=== PATIENT | female | born 1985 | race American Indian/Alaskan Native ===

== ENCOUNTER 2018-12-13 08:07 | Emergency (ER) | payer BC, OTHER ==
[2018-12-13 08:19] VITALS: BMI 31.2
[2018-12-13 08:38] LABS: PH,URINE 5.5 (5.0-8.0); URINE APPEARANCE CLEAR; URINE BILIRUBIN NEGATIVE (NEGATIVE); URINE COLOR YELLOW; URINE GLUCOSE (UA) NEGATIVE (NEGATIVE); URINE KETONE NEGATIVE (NEGATIVE); URINE LEUK ESTERASE NEGATIVE (NEGATIVE); URINE NITRITE NEGATIVE (NEGATIVE); URINE PROTEIN NEGATIVE (NEGATIVE); URINE UROBILINOGEN 0.2 mg/dL (0.2-1.0)
[2018-12-13 08:40] LABS: HCG,QUALITATIVE URINE Negative
--- NOTE | 2018-12-13 10:04 | PDOC ---
Attending Attestation - Resident Resident Name: Marty Ma - ED Attending Attestation I have performed the following: I have examined & evaluated the patient, The case was reviewed & discussed with the resident, I agree w/resident's findings & plan, Exceptions are as noted - HPI HPI: 33 yo F history PCOS presents with episode of RLQ pain this morning. Pain resolved upon arrival in ED. Pain was sharp, severe, nonradiating. No associated N/V/D, f/c, dysuria, flank pain. She follows with her senior mechanical project engineer for the PCOS, was told she previously had a 5 cm cyst which had resolved a few months ago. Currently denies any pain. - Physicial Exam PE: GENERAL: Awake, alert, and fully oriented, in no acute distress HEAD: No signs of trauma EYES: PERRLA, EOMI, sclera anicteric, conjunctiva clear ENT: Auricles normal inspection, hearing grossly normal, nares patent, oropharynx clear without exudates. Moist mucosa NECK: Normal ROM, supple, no lymphadenopathy, JVD, or masses LUNGS: Breath sounds equal, clear to auscultation bilaterally. No wheezes, and no crackles HEART: Regular rate and rhythm, normal S1 and S2, no murmurs, rubs or gallops ABDOMEN: Soft, +mild RLQ tenderness, normoactive bowel sounds. No guarding, no rebound. No masses EXTREMITIES: Normal range of motion, no edema. No clubbing or cyanosis. No cords, erythema, or tenderness NEUROLOGICAL: Cranial nerves II through XII grossly intact. Normal speech, normal gait. Motor and sensation intact SKIN: Warm, dry, normal turgor, no rashes or lesions noted. - Medical Decision Making Pt initially pain free on first eval, but noted to have tenderness. Sono was ordered to r/o cyst vs torsion. However, she developed another episode of pain in the ED, and ultrasound was expedited. Found to have 5cm cyst, will d/w her senior mechanical project engineer in light of the intermittent symptoms, as they are concerning for torsion. Kidney stone less likely in the absence of flank pain and urinary symptoms. No signs of UTI. Appy also unlikely, as the description of her symptoms is very atypical fro this.
[2018-12-13] MEDS ORDERED: ACETAMINOPHEN 500 MG TABLET (FP) PO ONE (10:22)
[2018-12-13] MEDS ORDERED: ACETAMINOPHEN INJECTION 100 ML IVPB ONE (10:23)
[2018-12-13] MEDS ORDERED: ACETAMINOPHEN 1000 MG/100 ML VIAL (NON FORMULARY) IVPB ONE (10:23)
[2018-12-13 10:28] LABS: HEMATOCRIT 39.4 % (32.4-45.2); HEMOGLOBIN 12.9 GM/dL (10.7-15.3); MCH 28.3 pg (25.7-33.7); MCHC 32.8 g/dl (32.0-36.0); MEAN CELL VOLUME 86.4 fl (80-96); RBC 4.56 M/mm3 (3.60-5.2)
[2018-12-13 10:46] LABS: BASO % 0.5 % (0-2.0); EOS % 2.5 % (0-4.5); LYMPH % 40.5 % (8-40); MEAN PLT VOLUME 9.9 fl (7.5-11.1); MONO % 7.1 % (3.8-10.2); NEUT % 49.4 % (42.8-82.8); RDW 14.3 % (11.6-15.6); WHITE BLOOD COUNT 12.7 K/mm3 (4.0-10.0)
[2018-12-13 10:51] LABS: PLATELET COUNT 271 K/MM3 (134-434)
--- NOTE | 2018-12-13 11:04 | PDOC ---
History of Present Illness - General Chief Complaint: Pain, Acute Stated Complaint: RT LWR ABD PAIN Time Seen by Provider: 12/13/18 09:22 History Source: Patient, Spouse ( present at bedside.) Exam Limitations: No Limitations - History of Present Illness Initial Comments: HPI: 33 y/o female presenting to [facility] ER complaining of sudden onset of worsening RLQ pain at approx. 07:45 this morning. Pain became more intense before suddenly improving significantly approx. 10 min prior to interview. States it was nonmigratory with possible radiation to groin. Now area feels dull/achy. Endorses history of R lower back pain, which is unchanged. Denies urinary symptoms or vaginal discharge. Reports negative home test two days ago. Denies h/o of similar pain. OBGYN: Dr. Jackson Israel at [facility] Hx: - Occupation Registered Nurse Medical Hx: - PCOS managed with Metformin and Spironolactone - Mirena IUD in place Surgical Hx: - x2 (last 2011) Review of Systems: In addition to that documented in the HPI above, the additional ROS was obtained : Constitutional: Denies fevers or chills Head: Denies vision changes ENMT: Denies sore throat CV: Denies chest pain Resp: Denies SOB GI: Denies vomiting or diarrhea : Denies painful urination, hematuria, or vaginal discharge MSK: Denies recent trauma Skin: Denies new rashes Neuro: Denies new numbness or tingling or weakness Endocrine: Denies polyuria Heme: Denies bleeding or bruising Physical Examination: Constitutional: Well-developed, well-nourished adult female in no acute distress or obvious discomfort. Found semi-fowlers on hospital bed. Alert and oriented x4. Answered all questions appropriately and completely. Speech was non -labored, non-pressured. Head: Normocephalic. No obvious external signs of trauma. Cardiovascular / Chest: Regular rate and regular rhythm. No murmur, rubs, clicks , or gallops. Peripheral pulses: radial pulses full. Respiratory: Breathing unlabored. Equal chest rise and fall. Clear to auscultation bilaterally. No stridor, no wheezing, no rhonchi. Gastrointestinal: abdomen is tender in RLQ without rebound, guarding, or grimace. Pt able to bend at the waist and transition from laying to seated position without obvious discomfort. Globally, abdomen is soft and nondistended. No hepatosplenemegaly. No pulsatile masses. No overlying skin lesions or obvious signs of trauma. Neuro: Alert and oriented. Moving all four extremities spontaneously. Skin: Warm, dry, and intact. : No R or L CVA tenderness. Psych: Affect: appropriate. Mood: normal. Past History - Past Medical History Allergies/Adverse Reactions: Allergies Allergy/AdvReac Type Severity Reaction Status Date / Time No Known Allergies Allergy Verified 12/13/18 08:16 Home Medications: Ambulatory Orders Levonorgestrel [Mirena] 1 each IY ASDIR 12/13/18 Spironolactone [Aldactone] 50 mg PO BID 12/13/18 metFORMIN HCL [Metformin HCl] 1,000 mg PO BID 12/13/18 COPD: No Other medical history: PCOS - Reproductive History Polycystic Ovaries: Yes - Suicide/Smoking/Psychosocial Hx Smoking History: Never smoked *Physical Exam - Vital Signs Last Vital Signs Temp Pulse Resp BP Pulse Ox 98.4 F 75 18 129/74 97 12/13/18 08:13 12/13/18 08:13 12/13/18 08:13 12/13/18 08:13 12/13/18 08:13 ED Treatment Course - LABORATORY CBC & Chemistry Diagram: 12/13/18 10:00 12/13/18 10:00 - ADDITIONAL ORDERS Additional order review: Laboratory Results 12/13/18 08:15 Urine Color Yellow Urine Appearance Clear Urine pH 5.5 Ur Specific Bath 1.021 Urine Protein Negative Urine Glucose (UA) Negative Urine Ketones Negative Urine Blood Negative Urine Nitrite Negative Urine Bilirubin Negative Urine Urobilinogen 0.2 Ur Leukocyte Esterase Negative Urine HCG, Qual Negative 12/13/18 10:00 RBC 4.56 MCV 86.4 MCHC 32.8 RDW 14.3 MPV 9.9 Neutrophils % 49.4 Lymphocytes % 40.5 H Monocytes % 7.1 Eosinophils % 2.5 Basophils % 0.5 - RADIOLOGY Radiology Studies Ordered: Category Date Time Status TRANSVAGINAL ULTRASOUND US [US] Stat Ultrasound 12/13/18 09:56 Ordered - Medications Given in the ED: ED Medications Discontinued Medications Generic Name Dose Route Start Last Admin Trade Name Freq PRN Reason Stop Dose Admin Acetaminophen 975 mg 12/13/18 10:22 12/13/18 10:37 Tylenol - PO 12/13/18 10:23 Not Given ONCE ONE Acetaminophen 1,000 mg 12/13/18 10:23 12/13/18 10:36 Ofirmev Injection - IVPB 12/13/18 10:24 1,000 mg ONCE ONE Administration *DC/Admit/Observation/Transfer Diagnosis at time of Disposition: Right lower quadrant pain - Discharge Dispostion Disposition: HOME Condition at time of disposition: Improved Decision to Admit order: No - Referrals - Patient Instructions Printed Discharge Instructions: DI for Abdominal Pain-Adult, DI for Ovarian Cyst Additional Instructions: You were seen today for right lower quadrant abdominal pain. Your ultrasound revealed a cyst on your right ovary. This cyst may possibly be causing your ovary to intermittently twist on itself. It does not appear to require surgery at this time. However should the pain return and become constant, please return to the emergency department for further evaluation. Over the next few days, you should rest and refrain from intercourse. You can take over the counter Tylenol or Advil as needed for pain. Take as directed on the package insert. Do not exceed the recommended dosage. Follow up with your OBGYN, Dr. Cordova in the next two to three days. You will need to call to make an appointment. The number is included in this packet. A copy of todays results are attached to this packet. Take it to the appointment so your doctor can review them. Go to the nearest emergency department if your condition worsens or you feel like you need additional emergency evaluation. Print Language: CAMBODIAN - Post Discharge Activity Forms/Work/School Notes: Back to Work
[2018-12-13 11:26] LABS: ALBUMIN 3.6 g/dl (3.4-5.0); BILIRUBIN,TOTAL 0.4 mg/dL (0.2-1); BLOOD UREA NITROGEN 18.5 mg/dL (7-18); CALCIUM 9.3 mg/dL (8.5-10.1); CREATININE 0.9 mg/dL (0.55-1.3); POTASSIUM 3.7 mmol/L (3.5-5.1); TOT PROT 7.1 g/dl (6.4-8.2)
[2018-12-13] MEDS ORDERED: LACTATED RINGERS SOLUTION 1,000 ML/1,000 ML INFUS.BAG IV SCH (13:30)
[2018-12-13 16:51] VITALS: BP 99/85; PULSE 74; TEMP 98.1
== END 2018-12-13 17:06 | disposition home or self-care (01) ==
LOC: JER 08:07
PROC: 3E0337Z Introduction of Electrolytic and Water Balance Substance into Peripheral Vein, Percutaneous Approach (ICD-10-PCS; principal; 2018-12-13)
PROC: 3E033NZ Introduction of Analgesics, Hypnotics, Sedatives into Peripheral Vein, Percutaneous Approach (ICD-10-PCS; 2018-12-13)
DX: N83.201 Unspecified ovarian cyst, right side (principal); E28.2 Polycystic ovarian syndrome
CPT/HCPCS: 36415; 76830-TC; 80053; 81003; 83690; 84703; 85025; 87077; 87086; 99283-25; J0131